=== PATIENT | male | born 1995 | race Two or more races ===

== ENCOUNTER 2021-01-20 08:09 | Emergency (ER) | payer MEDICAID, OTHER ==
[~2021-01-20] VITALS: Ht 180.3 cm; Wt 99.8 kg
[2021-01-20 08:35] VITALS: BP 140/80
[2021-01-20] MEDS ORDERED: traMADol HCL 50 MG TAB PO ONE (09:00)
== END 2021-01-20 09:38 | disposition home or self-care (01) ==
LOC: ER 08:09
DX: S62.632A Displaced fracture of distal phalanx of right middle finger, initial encounter for closed fracture (principal); F17.210 Nicotine dependence, cigarettes, uncomplicated; X58.XXXA Exposure to other specified factors, initial encounter; Y93.89 Activity, other specified; Y92.89 Other specified places as the place of occurrence of the external cause; Y99.8 Other external cause status
CPT/HCPCS: 29125; 29130; 73120